=== PATIENT | female | born 1950 | race Caucasian/White ===

== ENCOUNTER 2017-02-03 05:59 | Day surgery (SDC) | payer BC ==
--- NOTE | 2017-01-19 11:37 | HP ---
PREOPERATIVE HISTORY AND PHYSICAL: DATE OF SURGERY/ADMISSION: 02/03/17 DATE OF OFFICE VISIT/ENCOUNTER: 01/15/17 ATTENDING SURGEON: May Rodriguez MD * (DICTATED BY PAUL GIRALDO) PROCEDURE: Right thumb trigger finger release. CHIEF COMPLAINT: Right thumb triggering. HISTORY OF PRESENT ILLNESS: This is a 66-year-old female who has had triggering in her right thumb for over a year now. She was treated with a cortisone injection approximately a year ago and that helped to a certain extent ; however, the symptoms had returned recently and she feels that it is worse than it was before. The thumb is very stiff and she has trouble fully flexing the thumb. It is also very painful if she tries to move through full range of motion. She would like to proceed with surgical intervention at this time. PAST MEDICAL HISTORY: History of breast cancer treated with chemotherapy and radiation. PAST SURGICAL HISTORY: 1. Lumpectomy. 2. Left De Quervain's release. 3. Right Achilles tendon repair. CURRENT MEDICATIONS: 1. Anastrozole 1 mg daily. 2. Calcium 600 plus vitamin D daily. 3. Multivitamin daily. 4. Tylenol Extra Strength p.r.n. 5. Vitamin D high potency daily. ALLERGIES: 1. CODEINE, causes nausea and vomiting. 2. TETRACYCLINE, causes hives. FAMILY MEDICAL HISTORY: Noncontributory. Her parents are alive and well, aged 97 and 96. SOCIAL HISTORY: Patient is employed with a [employer] business and she also does fund raising consulting. She denies tobacco use or recreational drug use and alcohol use. REVIEW OF SYSTEMS: General: Negative for fevers, chills, or night sweats. No known anesthesia problems. HEENT: Negative for headache, lightheadedness, or syncopal episodes. Integumentary: Negative for abrasions, lesions, or open wounds. Cardiothoracic: Negative for hypertension, chest pain, palpitations, or edema. Pulmonary: Negative for shortness of breath with exertion, chronic cough, COPD. GI: Negative for nausea, vomiting, diarrhea, constipation, or GERD. : Negative for nocturia, urinary frequency, urgency, history of UTIs or kidney problems. Musculoskeletal: Positive for current complaint; otherwise negative. Neurological: Negative for paresthesias, numbness, history of seizures, stroke, or epilepsy. Endocrine: Negative for diabetes or thyroid issues. Hematologic: Negative for easy bruising, anemia, excessive bleeding, or history of DVT. Infectious Disease: Negative for history of MRSA, hepatitis, or HIV. PHYSICAL EXAMINATION GENERAL: Well-developed, well-nourished, 66-year-old female, in no acute distress. VITAL SIGNS: Height 5 feet 5 inches, weight 140 pounds, pulse rate 68, blood pressure 110/66. HEENT: Normocephalic, atraumatic. Pupils are equal, round, and reactive to light. Extraocular movements are intact. Throat is clear. NECK: Supple. No palpable lymph nodes. PULMONARY: Lungs are clear to auscultation bilaterally. No wheezes, rales, or rhonchi. CARDIOVASCULAR: Regular rate and rhythm. S1 and S2. No murmurs, rubs, or gallops. No edema. ABDOMEN: Positive bowel sounds, soft, nontender. NEUROLOGIC: Alert and oriented x3. Cranial nerves II through XII are intact. Sensation is intact to light touch. MUSCULOSKELETAL: On exam of the right hand, the patient at A1 kiara of the right thumb, she has marked stiffness at the right thumb IP joint and decreased ability to fully flex the thumb secondary to pain. IMPRESSION: Right thumb trigger thumb. PLAN: The patient is scheduled to undergo a right thumb trigger finger release with Dr. Rodriguez on 02/03/17. She will return to the office 10 to 14 days postop for followup and suture removal. A prescription for Ultracet was e-scribed to the patient's pharmacy for postoperative pain management. PAUL GIRALDO [id number]/[facility] #: [id number] MTDD
[~2017-02-03 05:59] MED LIST: Buffered Lidocaine 0.9% SYRIN* 5 ML/SYR SYRINGE INTRADERM ONE
[2017-02-03] MEDS ORDERED: Buffered Lidocaine 0.9% SYRIN* 5 ML/SYR SYRINGE ONE (06:06)
[2017-02-03] MEDS ORDERED: Lidocaine 1% INJ* 10 MG/ML 30 ML SDV ONE (07:05)
[2017-02-03] MEDS ORDERED: Midazolam* 1 MG/ML 2 ML VIAL (2 MG) ONE (07:11)
[2017-02-03] MEDS ORDERED: fentaNYL* 50 MCG/ML 2 ML VIAL (100 MCG VIAL) ONE (07:11)
[2017-02-03] MEDS ORDERED: DiMENhydriNATE IV* 50 MG/ML VIAL IV PUSH PRN (07:15)
[2017-02-03] MEDS ORDERED: Ondansetron INJ* 2 MG/ML VIAL IV PRN (07:15)
[2017-02-03] MEDS ORDERED: Acetaminophen TAB* 325 MG PO PRN (07:15)
[2017-02-03] MEDS ORDERED: Lidocaine 2% PF * 5 ML VIAL ONE (07:37)
[2017-02-03] MEDS ORDERED: Propofol* 10 MG/ML 20 ML BTL IV PUSH ONE (07:37)
[2017-02-03] MEDS ORDERED: Ketorolac INJ* 30 MG/ML 1 ML VIAL ONE (07:37)
[2017-02-03 08:39] VITALS: BP 109/89
--- NOTE | 2017-02-03 10:28 | OP ---
DATE OF OPERATION: 02/03/17 - [facility] DATE OF : 54 SURGEON: May Rodriguez MD SUPERVISOR STENO POOL: PAUL Putnam ANESTHESIOLOGIST: Dr. Soto ANESTHESIA: Local MAC. PRE-OP DIAGNOSIS: Right trigger thumb. POST-OP DIAGNOSIS: Right trigger thumb. OPERATIVE PROCEDURE: Right trigger thumb release. ESTIMATED BLOOD LOSS: Zero. TOURNIQUET TIME: About 5 minutes. INDICATIONS FOR PROCEDURE: Arpita is a 66-year-old female with triggering of her right thumb. She presents for trigger thumb release. DESCRIPTION OF PROCEDURE: The patient was brought to the operating room, was given a sedation anesthetic and a local infiltration of 10 cc of 1% plain lidocaine. Skin of her right hand and forearm was prepped and draped in the usual sterile fashion. The hand and forearm were exsanguinated and the tourniquet elevated to 250 mmHg. A transverse incision was made centered at the A1 kiara of the right thumb. We dissected through the subcutaneous tissue. After the digital neurovascular bundles were retracted by the neurosurgical nurse, Barbara Brooks, the A1 kiara was incised longitudinally completely releasing the flexor tendon, which had a small area of abrasion. The wound was irrigated and the skin edges were reapproximated with 4-0 nylon suture. The wound was dressed with Xeroform, 4x4, Webril, and an Srikanth wrap. The patient tolerated the procedure well and was brought to the recovery room in good condition. [id number]/[facility] #: [id number] MTDD
== END 2017-02-03 09:21 | disposition home or self-care (01) ==
LOC: OR 05:59
PROVIDERS: ATTEND Orthopaedic Surgery
DX: M65.311 Trigger thumb, right thumb (principal); Z85.3 Personal history of malignant neoplasm of breast; F41.8 Other specified anxiety disorders
CPT/HCPCS: J1885; J2001; J2250; J2704; J3010

== ENCOUNTER 2017-07-25 09:00 | Emergency (ER) | payer BC ==
[2017-07-25 09:08] VITALS: BP 143/89
--- NOTE | 2017-07-25 11:33 | UC ---
Kamran Deleon Angela, scribed for Olya Campbell DO on 07/25/17 at 0942 . Skin Complaint HPI - HPI Summary HPI Summary: This pt is a 66 y/o female presenting to [facility] c/o sudden onset of lump on left wrist since 18:30 last night. Pt reports she arrived home from the gym last night and suddenly felt a lump on her left arm. She states it has been sore since last night. Denies trauma or injury to the arm. Pt works out 4 times a week at the [employer]. Pt reports this lump has felt stiff as well. Denies fever, chills, diaphoresis, nausea, vomiting, abd pain, chest pain, SOB. She states she feels great, and works out and runs frequently. She reports she is in the middle of chemo (on CMF) for breast CA which she has at [facility], her 4th week is this Thursday. The last infusion was 2.5 weeks ago on left arm. She states this current lump is not on the site of infusion. Pt has had a ganglion cyst 2 years ago on left wrist (not on current location of lump) and notes it was also sore. Allergic to tetracyclines. - History of Current Complaint Chief Complaint: UCSkin Time Seen by Provider: 07/25/17 09:27 Stated Complaint: WRIST COMPLAINT Hx Obtained From: Patient Onset/Duration: Lasting Hours, Still Present Skin Exposure Onset/Duration: Hours Ago Timing: Constant Current Severity: Moderate Pain Intensity: 3 Pain Scale Used: 0-10 Numeric Location: Other - left wrist Character: Swelling, Pain, Raised Aggravating Factor(s): Nothing Alleviating Factor(s): Nothing Associated Signs & Symptoms: Negative: Nausea, Vomiting, Diaphoresis, Difficulty Breathing, Fever, Chills, Chest Pain, Abdominal Pain Related History: Other: - is currently on chemo for breast CA - Allergy/Home Medications Allergies/Adverse Reactions: Allergies Allergy/AdvReac Type Severity Reaction Status Date / Time codeine Allergy Vomiting Verified 07/25/17 09:09 Tetracyclines Allergy Rash Verified 07/25/17 09:09 Review of Systems Constitutional: Negative Skin: Other - lump on left wrist Eyes: Negative ENT: Negative Respiratory: Negative Cardiovascular: Negative Gastrointestinal: Negative Genitourinary: Negative Motor: Negative Neurovascular: Negative Musculoskeletal: Other: - left wrist soreness Neurological: Negative Psychological: Negative All Other Systems Reviewed And Are Negative: Yes PMH/Surg Hx/FS Hx/Imm Hx - Additional Past Medical History Additional PMH: PMHx: ganglion cyst Other Endocrine History: DENIES: diabetes Other Cardiovascular History: DENIES: HTN Cancer History: Breast Cancer - Surgical History Surgical History: Yes Surgery Procedure, Year, and Place: LUMPECTOMY RIGHT BREAST, WITH SENTINEL BIOPSY 11/10/2014, [facility]. ACHILLES TENDON REPAIR AGE 18,. LT WRIST GANGLION CYST EXC 12/2015 - Family History Known Family History: Negative: Cardiac Disease, Hypertension, Diabetes - Social History Occupation: Retired Alcohol Use: None Substance Use Type: None Smoking Status (MU): Never Smoked Tobacco Have You Smoked in the Last Year: No Physical Exam Triage Information Reviewed: Yes Appearance: Well-Appearing, No Pain Distress, Well-Nourished Vital Signs: Initial Vital Signs Temp 97.8 F 07/25/17 09:05 Pulse 96 07/25/17 09:05 Resp 18 07/25/17 09:05 BP 143/89 07/25/17 09:05 Pulse Ox 100 07/25/17 09:05 Vital Signs Reviewed: Yes Eyes: Positive: Conjunctiva Clear. Negative: Discharge ENT: Positive: Hearing grossly normal. Negative: Muffled voice, Hoarse voice Neck exam: Normal Neck: Positive: Supple Respiratory: Positive: Lungs clear, Normal breath sounds, No respiratory distress, No accessory muscle use Cardiovascular: Positive: RRR, No Murmur Musculoskeletal Exam: Normal Neurological: Positive: Alert, Muscle Tone Normal Psychological Exam: Normal Psychological: Positive: Age Appropriate Behavior Skin Exam: Other - LUE: She has a 7 cm erythematous patch on the posterior surface of the left forearm with a thickened area about of a centimeter in size. Area is hot, red, swollen, and tender. Negative for fluctuance. Course/Dx - Course Course Of Treatment: Patient will be discharged with prescription for Keflex and follow up from her PCP in 2 days. She is advised to return to Urgent Care if she is not able to be seen in 2 days. The patient is agreeable with this plan. Medications reviewed. Allergies reviewed. - Diagnoses Provider Diagnoses: abscess Discharge - Discharge Plan Condition: Stable Disposition: HOME Prescriptions: Cephalexin CAP* [Keflex CAP*] 500 mg PO BID #20 cap Patient Education Materials: Abscess (ED), Warm Compress or Soak (ED) Referrals: Amy Ryan MD [Primary Care Provider] - 2 Days (Follow up in 2 days for re- evaluation. This follow up visit is important, we want to know that you are improving. If you can not get in with your PCP, return here for re-evaluation. ) Additional Instructions: CEPHALEXIN: The antibiotic you've been prescribed is a member of the cephalosporin class. This type of antibiotic covers a wide variety of infections, including those of the skin, lungs, and urinary tract. It's useful for staph infections. This antibiotic is slightly similar to the penicillin family. In rare cases , a person who is allergic to penicillin will also be allergic to this medication. If you have had a severe allergic reaction to penicillin, and have not taken this antibiotic since that time, notify your doctor. Antibiotics which cover many germs ("broad spectrum" antibiotics) are more likely to cause diarrhea or "yeast" infections. Women prone to vaginal yeast problems may suffer an attack after taking this antibiotic. In infants, oral thrush (white spots "stuck" on the cheek) or yeast diaper rash may result. See your doctor if these problems occur. Call at once if you develop itching, hives , shortness of breath, or lightheadedness. ANYTIME YOU TAKE AN ANTIBIOTIC, IT IS IMPORTANT TO REPLENISH THE BODY'S SUPPLY OF "GOOD BACTERIA." YOU CAN GET GOOD BACTERIA FROM HIGH QUALITY CULTURED FOODS SUCH LOCAL YOGURT, SOUR KRAUT, NENO VIDAL, NATURALLY FERMENTED PICKLES AND PROBIOTIC DRINKS. YOU CAN ALSO GET GOOD BACTERIA FROM A PROBIOTIC SUPPLEMENT. Follow up in 2 days for re-evaluation. This follow up visit is important, we want to know that you are improving. If you can not get in with your PCP, return here for re-evaluation. Do warm compresses. Please follow up with Dr. Ryan in 2 days, on Thursday07/27/17. The documentation as recorded by the Kamran king Angela accurately reflects the service I personally performed and the decisions made by me, Olya Campbell DO.
== END 2017-07-25 10:40 | disposition home or self-care (01) ==
LOC: UCEAST 09:00
DX: L02.414 Cutaneous abscess of left upper limb (principal); C50.919 Malignant neoplasm of unspecified site of unspecified female breast
CPT/HCPCS: 99212; G0463

== ENCOUNTER 2018-07-10 15:09 | Emergency (ER) | payer MEDICARE, BC ==
--- NOTE | 2018-07-10 15:17 | UC ---
Respiratory Complaint HPI - HPI Summary HPI Summary: 67 y/o female w/ PMHX of breast cancer s/p RT breast mastectomy presents to the urgent care c/o nasal congestion with yellowish drainage for the past week. Pt reports symptoms started over the last weekend with the common cold or flu. However she got the influenza vaccines this year. By Thursday she developed chest congestion w/ a productive cough, body aches, nausea and decrease appetite and low subjective fever at home. cough has worsen and now is producing a green sputum. She has taken Mucinex DM PO w/o any improvement. She feels her BP increases with the cough medication. Pt denies SOB, chest pain, abdominal pain, wheezing, V/D. - History of Current Complaint Stated Complaint: COUGH Time Seen by Provider: 07/10/18 15:16 Hx Obtained From: Patient ?: No - menopausal Onset/Duration: Gradual Onset, Lasting Weeks - 1 week, Still Present, Worse Since - 1 day Timing: Intermittent Episodes Severity Initially: Mild Severity Currently: Moderate Pain Intensity: 4 Pain Scale Used: 0-10 Numeric Character: Cough: Productive, Sputum Description: - green Aggravating Factors: Recumbent Position Alleviating Factors: OTC Meds Associated Signs And Symptoms: Positive: Fever, Chills, URI, Nasal Congestion, Sinus Discomfort. Negative: Dyspnea, Wheezing - Risk Factors Pulmonary Embolism Risk Factors: Negative Cardiac Risk Factors: Negative Pseudomonas Risk Factors: Negative Tuberculosis Risk Factors: Negative - Allergies/Home Medications Allergies/Adverse Reactions: Allergies Allergy/AdvReac Type Severity Reaction Status Date / Time codeine Allergy Vomiting Verified 07/10/18 15:22 Tetracyclines Allergy Rash Verified 07/10/18 15:22 Home Medications: Home Medications Tamoxifen TAB* [Nolvadex 10 MG*] 07/10/18 [History] guaiFENesin [Mucinex] 07/10/18 [History] PMH/Surg Hx/FS Hx/Imm Hx Previously Healthy: Yes Cancer History: Breast Cancer - rt breast s/p mastectomy - Surgical History Surgical History: Yes Surgery Procedure, Year, and Place: LUMPECTOMY RIGHT BREAST, WITH SENTINEL BIOPSY 11/10/2014, [facility]. ACHILLES TENDON REPAIR AGE 18,. LT WRIST GANGLION CYST EXC 12/2015 - Family History Known Family History: Positive: None - Pt denies FMHX Negative: Cardiac Disease, Hypertension, Diabetes - Social History Occupation: Retired Lives: With Family Alcohol Use: None Substance Use Type: None Smoking Status (MU): Never Smoked Tobacco Have You Smoked in the Last Year: No Review of Systems All Other Systems Reviewed And Are Negative: Yes Constitutional: Positive: Fever, Chills, Other - body aches Eyes: Positive: Negative ENT: Positive: Nasal Discharge - yellowish, Sinus Congestion Respiratory: Positive: Cough - productive phlegm w/ green phlegm Cardiovascular: Positive: Negative Gastrointestinal: Positive: Negative Genitourinary: Positive: Negative Motor: Positive: Negative Neurovascular: Positive: Negative Musculoskeletal: Positive: Negative Neurological: Positive: Negative Psychological: Positive: Negative Is Patient Immunocompromised?: No Physical Exam - Summary Physical Exam Summary: Vital Signs Reviewed: Yes General: well developed, well nourished female sitting in the examining table w/ o any apparent distress Eyes: Positive: Conjunctiva Clear - PERRLA, EOMI, fundi grossly normal ENT: Positive: Normal ENT inspection, Hearing grossly normal, Pharynx normal, Nasal congestion - edematous and erythematous nasal mucosa, Nasal drainage - yellowish drainage, TMs normal. Negative: Tonsillar swelling, Tonsillar exudate Neck: Positive: Supple, Nontender, No Lymphadenopathy Respiratory: no orthopnea or dyspnea. Able to speak in full sentences, no retractions or accessory muscle use, no tripod position, stridor, or head bobbing. Positive breath sounds bilaterally. diffuse scattered rhonchi on b/L lungs,RT>LF, no wheezing, no crackles or rales. Cardiovascular: Positive: RRR, No Murmur, Pulses Normal, Brisk Capillary Refill Abdomen Description: Positive: Nontender, No Organomegaly, Soft. Negative: CVA Tenderness (R), CVA Tenderness (L) Bowel Sounds: Positive: Present Musculoskeletal Exam: Normal Musculoskeletal: Positive: Strength Intact, ROM Intact, No Edema Neurological Exam: Normal Psychological Exam: Normal Skin Exam: Normal Triage Information Reviewed: Yes Respiratory Course/Dx - Course Course Of Treatment: 67 y/o female w/ PMHX of breast cancer s/p RT breast mastectomy presents to the urgent care c/o nasal congestion with yellowish drainage for the past week. Pt reports symptoms started over the last weekend with the common cold or flu. However she got the influenza vaccines this year. By Thursday she developed chest congestion w/ a productive cough, body aches, nausea and decrease appetite and low subjective fever at home. cough has worsen and now is producing a green sputum. She has taken Mucinex DM PO w/o any improvement. She feels her BP increases with the cough medication. Pt denies SOB, chest pain, abdominal pain, wheezing, V/D. Hx obtained. Pt with B/L lungs with scattered rhonchi Rt >LF on examination. Rapid Inlfuenza A&B; negative.Chest X-ray ordered to r/o pneumonia. Impression: Nodular RT upper lobe infiltrate , radiologist recommends repeat chest X-ray for complete resolution, otherwise a CT should be done to r/o neoplastic process. Pt educated on her results and given a CD copy of Chest X-ray to take it to her Oncologist in [facility]. Rx Rx Levofloxacin PO and Tessalon tabs PO. Pt advised if worsening symptoms despite antibiotics to go the ER immediately, otherwise f/u wit PCP in 2 days to make sure symptoms are improving. All questions were answered at patient satisfaction. There were no further complaints or concerns. Pt understood and agreed w/ plan of care. Pt left the clinic hemodynamically stable, A&OX3 - Differential Dx/Diagnosis Differential Diagnosis/HQI/PQRI: Asthma, Bronchitis, Influenza, Lower Resp Infection, Other - pneumonia Provider Diagnosis: Community acquired pneumonia, Cough Discharge - Sign-Out/Discharge Documenting (check all that apply): Patient Departure - D/C home All imaging exams completed and their final reports reviewed: No Studies - Discharge Plan Condition: Stable Disposition: HOME Prescriptions: Benzonatate CAP* [Tessalon 100 MG CAP*] 100 mg PO TID PRN #21 cap PRN Reason: Cough Levofloxacin TAB* [Levaquin TAB*] 750 mg PO DAILY #7 tab Patient Education Materials: Community Acquired Pneumonia (ED) Referrals: Amy Ryan MD [Primary Care Provider] - 2 Days Additional Instructions: 1-Please take full course of antibiotic to avoid resistance. 2-Take Tessalon tabs PO as directed to alleviate cough. Increase fluid intake, rest and eat well. 3- If symptoms do not improve or worsen or your develop SOB with fever and severe cough please go immediately to the ER further evaluation and treatment. 4-Please I strongly recommend to f/u with your PCP in 3 days to check your symptoms are improving. Also a repeat Chest X-ray for complete resolution of the nodular infiltrates observed in the Chest -ray in about 4 weeks. If not complete resolution a CT of chest should be done or f/u with your Oncologist in [facility] - Billing Disposition and Condition Condition: STABLE Disposition: Home
[2018-07-10 15:23] VITALS: BP 98/65
[2018-07-10 16:06] LABS: Influenza A Molecular NEGATIVE (Negative); Influenza B Molecular NEGATIVE (Negative)
== END 2018-07-10 16:59 | disposition home or self-care (01) ==
LOC: UCEAST 15:09
DX: J18.9 Pneumonia, unspecified organism (principal); R05 Cough; Z88.5 Allergy status to narcotic agent; Z88.1 Allergy status to other antibiotic agents
CPT/HCPCS: 71046; 99212; G0463

== ENCOUNTER 2019-01-26 13:00 | Day surgery (SDC) | payer MEDICARE, BC ==
[2019-01-26] MEDS ORDERED: Midazolam* 1 MG/ML 5 ML VIAL (5 MG) ONE (14:18)
[2019-01-26] MEDS ORDERED: fentaNYL* 50 MCG/ML 2 ML VIAL (100 MCG VIAL) ONE (14:26)
[2019-01-26] MEDS ORDERED: Midazolam* 1 MG/ML 2 ML VIAL (2 MG) ONE (14:37)
[2019-01-26 15:26] LABS: Body Fluid Source Pleural Fluid
[2019-01-26] MEDS ORDERED: fentaNYL* 50 MCG/ML 2 ML VIAL (100 MCG VIAL) IV PRN (15:43)
[2019-01-26] MEDS ORDERED: Ondansetron INJ* 2 MG/ML VIAL IV PRN (15:43)
[2019-01-26] MEDS ORDERED: Acetaminophen TAB* 325 MG PO PRN (15:43)
[2019-01-26] MEDS ORDERED: Naloxone* 0.4 MG/ML 1 ML VIAL IV PRN (15:43)
[2019-01-26 16:18] VITALS: BP 102/72
[2019-01-26 17:05] LABS: Body Fluid Mono 54 %
--- NOTE | 2019-01-26 17:40 | PRO ---
THORACENTESIS REPORT: DATE OF PROCEDURE: 01/26/19 PREPROCEDURAL DIAGNOSIS: Large right pleural effusion. POSTPROCEDURAL DIAGNOSIS: Large right pleural effusion. ANESTHESIA: The patient requested conscious sedation, local anesthesia with 1% lidocaine, 6 cc was administered. ANESTHESIOLOGIST: Dr. Messina. DESCRIPTION OF PROCEDURE: Informed consent was obtained from the patient prior to the procedure after all the risks and benefits were thoroughly explained. The patient with anxiety and has required conscious sedation during the procedure. The patient was sitting up, leaning forward after the anesthesia was administered. CareFusion 8-Fijian thoracentesis catheter was utilized for the procedure. All aseptic precautions and barrier techniques were followed. The area was sterilized with chlorhexidine. Sterile drape was subsequently placed. 1% lidocaine 6 mL was inserted transdermally subcutaneously down into the pleural space taking precautions. A #11 scalpel blade was used to make stab incision. CareFusion 8-Fijian thoracentesis catheter was then placed under manual suction taking precautions. Catheter was left in place and needle was removed. 1800 mL of dark yellow fluid was removed under manual suction. The patient tolerated the procedure well. Postprocedure, no complications occurred. The patient was feeling well and denied any complaints. Fluid was sent into the lab for further testing. [id number]/[facility] #: [id number] [facility]
[2019-01-28 10:43] LABS: Lactate Dehydrogenase, BF 345 U/L
== END 2019-01-26 16:22 | disposition home or self-care (01) ==
LOC: OR 13:00
PROVIDERS: ATTEND Internal Medicine
DX: J90 Pleural effusion, not elsewhere classified (principal); C50.911 Malignant neoplasm of unspecified site of right female breast; C79.51 Secondary malignant neoplasm of bone; R06.02 Shortness of breath
CPT/HCPCS: 32554; 36415; 76604; 82945; 83615; 83986; 84157; 87070; 87205; 88112; 88305; 89051; J2250; J3010

== ENCOUNTER 2019-02-05 09:28 | Emergency (ER) | payer MEDICARE, BC ==
[2019-02-05] MEDS ORDERED: NS 0.9% 1000 ML** 1,000 ML IV ONE (09:38)
--- NOTE | 2019-02-05 09:39 | ED ---
Shortness of Breath - HPI Summary HPI Summary: This patient is a 68 year old F presenting to ED with a chief complaint of SOB since 5 days ago worsening yesterday. Patient does not have a history of asthma or COPD, but has metastatic breast cancer. She had a thoracentesis a week ago which alleviated her SOB at the time. However, she re-developed SOB and states she is now unable to walk very many steps without losing her breath. Patient reports hearing wheezing and crackling, similar to when she had PNA, but states she does not feel sick. She states she everything she has coughed up has been clear. Patient does not a history of CHF, DVT, PE. The patient rates the pain 0/ 10 in severity. Symptoms aggravated by physical exertion. Symptoms alleviated by nothing. Patient reports cough. Patient denies fevers, chills. - History of Current Complaint Chief Complaint: EDShortnessOfBreath Hx Obtained From: Patient Onset/Duration: Gradual Onset, Lasting Days - Since 5 days ago, Worse Since - Yesterday Current Severity: Mild Dyspnea At: Rest Aggravating Factors: Other - Physical exertion Alleviating Factors: Nothing Associated Signs & Symptoms: Negative - Fever, chills, Cough (Nonproductive) - Allergy/Home Medications Allergies/Adverse Reactions: Allergies Allergy/AdvReac Type Severity Reaction Status Date / Time codeine Allergy Vomiting Verified 02/05/19 09:38 Tetracyclines Allergy Rash Verified 02/05/19 09:38 Home Medications: Home Medications Palbociclib [Ibrance] 125 mg PO DAILY 02/05/19 [History Confirmed 02/05/19] PMH/Surg Hx/FS Hx/Imm Hx Previously Healthy: No Endocrine/Hematology History: Denies: Hx Diabetes Cardiovascular History: Denies: Hx Hypertension, Hx Pacemaker/ICD, Other Cardiovascular Problems/ Disorders GI History: Denies: Other GI Disorders Musculoskeletal History: Reports: Hx Arthritis - RIGHT HIP, Hx Tendonitis - STATES BECAUSE OF THE ANASTRAZOLE Denies: Other Musculoskeletal History Sensory History: Reports: Hx Contacts or Glasses - INSTRUCTS GIVEN Denies: Hx Hearing Aid Opthamlomology History: Reports: Hx Contacts or Glasses - INSTRUCTS GIVEN Neurological History: Reports: Other Neuro Impairments/Disorders - 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 ACHILLES TENDON REPAIR AGE 18,. LT WRIST GANGLION CYST EXC 12/2015 Hx Anesthesia Reactions: No Infectious Disease History: No Infectious Disease History: Denies: Traveled Outside the [place] in Last 30 Days - Family History Known Family History: Negative: Cardiac Disease, Hypertension, Diabetes - Social History Alcohol Use: None Hx Substance Use: No Substance Use Type: Reports: None Hx Tobacco Use: No Smoking Status (MU): Never Smoked Tobacco Have You Smoked in the Last Year: No Review of Systems Negative: Fever, Chills Positive: Shortness Of Breath, Cough All Other Systems Reviewed And Are Negative: Yes Physical Exam - Summary Physical Exam Summary: GENERAL: Patient is a well-developed and nourished F who is lying comfortable in the stretcher. Patient is not in any acute respiratory distress. HEAD AND FACE: Normocephalic EYES: PERRLA, EOMI x 2. EARS: Hearing grossly intact. MOUTH: Oropharynx within normal limits. NECK: Supple, trachea is midline, no adenopathy, no JVD, no carotid bruit. CHEST: Symmetric, no tenderness at palpation LUNGS: Clear to auscultation bilaterally. No wheezing or crackles. Patient is actively coughing. CVS: Regular rate and rhythm, S1 and S2 present, no murmurs or gallops appreciated. ABDOMEN: Soft, non-tender. Bowel sounds are normal. No abnormal abdominal pulsations. EXTREMITIES: Full ROM in all major joints, no edema, no cyanosis or clubbing. NEURO: Alert and oriented x 3. No acute neurological deficits. Speech is normal and follows commands. SKIN: Dry and warm Triage Information Reviewed: Yes Vital Signs On Initial Exam: Initial Vitals Temp Pulse Resp BP Pulse Ox 97.1 F 128 30 158/104 97 02/05/19 09:30 02/05/19 09:30 02/05/19 09:30 02/05/19 09:30 02/05/19 09:30 Vital Signs Reviewed: Yes Diagnostics - Vital Signs Vital Signs Temp Pulse Resp BP Pulse Ox 02/05/19 09:30 97.1 F 128 30 158/104 97 - Laboratory Result Diagrams: 02/05/19 09:49 02/05/19 09:49 Lab Statement: Any lab studies that have been ordered have been reviewed, and results considered in the medical decision making process. - Radiology CXR Radiology Interpretation Completed By: Radiologist Summary of Radiographic Findings: Large dependent RIGHT pleural effusion with proportional atelectasis similar in magnitude to the January 20, [address] High has reviewed this radiology report. CXR 2 Radiology Interpretation Completed By: Radiologist Summary of Radiographic Findings: #. Moderate RIGHT dependent pleural effusion with proportional atelectasis significantly reduced compared with the earlier exam of the same date. Negative for pneumothorax. #. The heart, pulmonary vasculature, and mediastinal contours are unremarkable. Dr. High has reviewed this radiology report. - EKG 0940 Cardiac Rate: NL - 109 BPM EKG Rhythm: Sinus Rhythm Summary of EKG Findings: Sinus tachycardia at 109 BPM, normal interval. Re-Evaluation - Re-Evaluation First Eval Re-Evaluation Time: 10:11 Comment: Patient reports her thoracentesis was done by Dr. Higgins as an outpatient. Second Eval Re-Evaluation Time: 10:47 Comment: Discussed XR results and plan for Dr. Montano to perform the thoracentesis with patient. Patient agrees but is requesting sedation with Versed for the procedure. Patient reports that the last time she had a thoracentesis she did not go home with the tube in. Third Eval Re-Evaluation Time: 12:45 Comment: Patient had thoracentesis procedure performed by Dr. Montano. He leonarda off 1.8L of fluid. Patient reports her lung feels achy, which is similar to the last time she had a thoracentesis procedure. Fourth Eval Re-Evaluation Time: 14:09 Comment: Discussed post-thoracentesis XR results. After the thoracentesis the patient is much improved. She is able to walk to the bathroom. She reports she is hungry and getting woozy from the hunger. She still has a little bit of coughing, which is new, and is still mildly tachycardic. However, she is down from 120 BPM to 105 BPM. Patient states that recently this has been her resting heart rate. Patient offered admission for observation, but she states she would prefer to go home. Her next appointment with Dr. Grijalva, her oncologist, is not for a few weeks, but she states she will schedule a sooner appointment. I trended the patient's heart rate in the system and noted that she has been slightly tachycardic since July. Because of the patient's cough, I will treat with antibiotics and have the patient follow-up with oncology. Patient will be discharged home with dx of SOB and pleural effusion. Patient understands and agrees with this plan. Course/Dx - Course Course Of Treatment: This patient is a 68 year old F presenting to ED with a chief complaint of SOB since 5 days ago worsening yesterday. In the ED course, patient received fluids. EKG at 0940 revealed sinus tachycardia at 109 BPM, normal interval. CXR revealed: Large dependent RIGHT pleural effusion with proportional atelectasis similar in magnitude to the January 20, 2019 CT. Blood work obtained without abnormality except for RBC 3.42 Hgb 10.3, Hct 31, RDW 18, MPV 6.9, absolute lymphocytes 0.5, calcium 8.2, total protein 6.1. UA obtained without abnormality except 1.005 specific gravity. To perform the thoracentesis , patient received 2mg Versed. At 1046 discussed patient case with Dr. Enrique Montano, surgeon, who stated he will come to do the thoracentesis. At 1242, discussed with Dr. Montano who performed the thoracentesis. Patient tolerated the procedure without complication. He leonarda off 1.8L of fluid. Following the thoracentesis, patient received Ofirnev for pain. Post-thoracentesis CXR revealed #. Moderate RIGHT dependent pleural effusion with proportional atelectasis significantly reduced compared with the earlier exam of the same date. Negative for pneumothorax. #. The heart, pulmonary vasculature, and mediastinal contours are unremarkable. Upon re-eval after the thoracentesis the patient is much improved. She still has a little bit of coughing and is still mildly tachycardic. However, she is down from 120 BPM to 105 BPM. Patient states that recently this has been her resting heart rate. I trended the patient 's heart rate in the system, and she has been slightly tachycardic since July. Patient offered admission for observation, but she states she would prefer to go home. Discussed with oncology regarding short course of antibiotics since the patient is coughing for underlying PNA. Luis Angel Motta, oncology PA, stated she was fine with patient being discharged for follow-up soon. Therefore, because of the patient's persistent cough, I will treat with Zithromax in the ED. I discussed results with patient, and she reports feeling better. She is hemodynamically stable and safe for discharge. Strict return precautions given and she will otherwise follow up with her PCP and oncology. Patient will be discharged home with dx of SOB and pleural effusion. - Diagnoses Provider Diagnoses: SOB (shortness of breath), Pleural effusion - Physician Notifications Discussed Care of Patient With: Luis Angel Motta Time Discussed With Above Provider: 10:37 Instructed by Provider To: Other - Discussed patient case with Luis Angel Motta oncology PA, who stated she will come down to the see the patient to get general surgery for the thoracentesis. At 1046 discussed patient case with Dr. Enrique Montano, surgeon, who stated he will come to do the thoracentesis. At 1242 , discussed with Dr. Montano who performed the thoracentesis. Patient tolerated the procedure without complication. He leonarda off 1.8L of fluid. At 1417 discussed patient case with with PAUL Alamo oncology, who states the patient can go home with follow-up in two days. Discharge ED - Sign-Out/Discharge Documenting (check all that apply): Patient Departure - Discharge Patient Received Moderate/Deep Sedation with Procedure: No - Discharge Plan Condition: Stable Disposition: HOME Prescriptions: Azithromycin 500 mg PO DAILY #4 tablet Patient Education Materials: Pleural Effusion (ED), Pneumonia (ED), Shortness of Breath (ED), Thoracentesis (DC) Referrals: Amy Ryan MD [Primary Care Provider] - 3 Days Yulia Grijalva MD [Medical Doctor] - 3 Days Additional Instructions: Follow up with your primary care physician in 1-3 days. Follow up with oncology as well. RETURN TO THE EMERGENCY DEPARTMENT FOR CHANGING OR WORSENING SYMPTOMS. - Billing Disposition and Condition Condition: STABLE Disposition: Home - Attestation Statements Document Initiated by Scribe: Yes Documenting Scribe: Tremaine Cannon Provider For Whom Scribe is Documenting (Include Credential): Vivi High MD Scribe Attestation: Tremaine Deleon, scribed for Vivi High MD on 02/05/19 at 1557. Scribe Documentation Reviewed: Yes Provider Attestation: The documentation as recorded by the scribe, Tremaine Cannon accurately reflects the service I personally performed and the decisions made by me, Vivi High MD Status of Scribe Document: Viewed
[2019-02-05 10:20] LABS: ABS Eosinophils 0.2 10^3/ul (0-0.6); ABS Lymphocytes 0.5 10^3/ul (1.0-4.8); ABS Monocytes 0.2 10^3/ul (0-0.8); ABS Neutrophils 2.6 10^3/ul (1.5-7.7); Hematocrit 31 % (35-47); Hemoglobin 10.3 g/dL (12.0-16.0); Lymphocyte % 13.2 %; Mean Corpuscular HGB Conc 34 g/dL (31-36); Mean Corpuscular Hemoglobin 30 pg (27-31); Mean Corpuscular Volume 90 fL (80-97); Mean Platelet Volume 6.9 fL (7.4-10.4); Nucleated Red Blood Cells % 0.3; Platelet Count 249 10^3/uL (150-450); Red Blood Count 3.42 10^6 /uL (3.70-4.87); Red Cell Distribution Width 18 % (10-15); White Blood Count 3.5 10^3/uL (3.5-10.8)
[2019-02-05 10:28] LABS: Activated Partial Thrombo Time 37.4 seconds (26.0-38.0); INR 1.03 (0.82-1.09)
[2019-02-05 10:37] LABS: Albumin 3.7 g/dL (3.2-5.2); Albumin/Globulin Ratio 1.5 (1-3); BUN/Creatinine Ratio 12.7 (8-20); Calcium 8.2 mg/dL (8.6-10.3); EGFR African American 88.1 (>60); EGFR Non-African American 72.8 (>60); Globulin 2.4 g/dL (2-4); Magnesium 2.1 mg/dL (1.9-2.7); Potassium 3.9 mmol/L (3.5-5.0); Total Bilirubin 0.3 mg/dL (0.2-1.0); Total Protein 6.1 g/dL (6.4-8.9)
[2019-02-05 11:49] LABS: Urine Appearance Clear; Urine Bilirubin Negative (Negative); Urine Blood Negative (Negative); Urine Color Colorless; Urine Glucose Negative (Negative); Urine Ketones Negative (Negative); Urine Nitrite Negative (Negative); Urine Protein Negative (Negative); Urine Specific Gravity 1.005 (1.010-1.030); Urine Urobilinogen Negative (Negative)
[2019-02-05] MEDS ORDERED: Midazolam* 1 MG/ML 5 ML VIAL (5 MG) IV SLOW PU ONE (11:50)
--- NOTE | 2019-02-05 12:07 | UC ---
Course/Dx - Provider Notifications Time Discussed With Above Provider: 10:37 Instructed by Provider To: Other - Discussed patient case with Luis Angel Motta, oncology PA, who stated she will come down to the see the patient to get general surgery for the thoracentesis. At 1046 discussed patient case with Dr. Enrique Montano, surgeon, who stated he will come to do the thoracentesis. Discharge ED - Discharge Plan Patient Education Materials: Procedural Sedation (ED) Referrals: Amy Ryan MD [Primary Care Provider] - - Attestation Statements Document Initiated by Monica: Yes
[2019-02-05] MEDS ORDERED: Acetaminophen IV 1GM/100ML * 100 ML IVPB ONE (13:00)
[2019-02-05] MEDS ORDERED: Azithromycin TAB* 250 MG PO ONE (14:20)
[2019-02-05 14:54] VITALS: BP 108/80
--- NOTE | 2019-02-05 15:35 | PRO ---
CC: Yulia Grijalva MD; [facility] * DATE OF PROCEDURE: 02/05/19 - EMERGENCY DEPT SURGEON: Enrique Montano MD DRINK MIXER: None. ANESTHESIA: 1% lidocaine plain used locally. PREPROCEDURE DIAGNOSIS: Recurrent right pleural effusion. POSTPROCEDURE DIAGNOSIS: Recurrent right pleural effusion. PROCEDURE: Right thoracentesis. ESTIMATED BLOOD LOSS: None. DRAINS: None. SPECIMENS: None. COMPLICATIONS: None. FINDINGS: 1850 mL clear straw-colored fluid removed from the right chest. INDICATIONS: This is a 68-year-old female with a recently diagnosed metastatic breast cancer who had a right thoracentesis for pleural effusion 1-1/2 weeks ago. She presented to the emergency room with complaint of shortness of breath and upon evaluation with imaging was noted to have a recurrent right pleural effusion. Emergency room staff contacted me for thoracentesis. I explained the nature of this procedure. The indications, risks, benefits, and alternatives including the option of treatment. We discussed possibility of future placement of a PleurX catheter. The patient was explained that the risks included, but were not limited to bleeding, infection, pain, scars, injury to the underlying lung, and need for additional procedures. The patient had all questions answered. She stated her understanding and agreed to proceed. DESCRIPTION OF PROCEDURE: The patient was positioned sitting upright in the bedside table while in the emergency room department stretcher. The posterior right chest was prepped and draped in the usual sterile fashion and time-out was performed. Local anesthetic was infiltrated into the skin and soft tissue at approximately the eighth intercostal space in line with the mid clavicle. The aspiration confirmed clear serous fluid. The skin was nicked with a 11 blade scalpel. A 5 -Jamaican catheter over needle device was advanced into the pleural cavity and then the needle was withdrawn. The tubing was then connected to evacuated canisters and 1850 mL of fluid was removed. At this point, the patient was reporting chest pain and coughing, and we decided to conclude the procedure. Catheter was removed without incident and dressing was applied. She tolerated this procedure well. Chest x-ray is pending at the time of dictation and will be checked. [id number]/[facility] #: [id number] MTDD
== END 2019-02-05 14:54 | disposition home or self-care (01) ==
LOC: ED 09:28
DX: J90 Pleural effusion, not elsewhere classified (principal); R06.02 Shortness of breath; Z79.899 Other long term (current) drug therapy; Z85.3 Personal history of malignant neoplasm of breast; R05 Cough; F41.9 Anxiety disorder, unspecified; I50.9 Heart failure, unspecified; Z86.718 Personal history of other venous thrombosis and embolism
CPT/HCPCS: 32554; 36415; 71045; 80053; 81003; 83605; 83735; 83880; 84484; 85025; 85610; 85730; 93005; 96365; 96375; 99284; A9270-GY; J2250

== ENCOUNTER → 2019-02-18 07:49 | Day surgery (SDC) | payer MEDICARE, BC ==
--- NOTE | 2019-02-18 09:25 | BRIEFOPN ---
Brief Operative/Procedure Note - Operation Details Pre-Op Diagnosis: Large rt effusion Post-Op Diagnosis: Large rt effusion Procedures: Thoracentesis with U/S guidance on right side Surgeon(s)/Proceduralists: Yuni Higgins Anesthesia: Local with 1% Lidocaine 5cc Estimated Blood Loss: None Findings: Large rt effusion, dark yellow Specimen(s)/Culture(s) Description: Fluid sent for cytology Complications: None
--- NOTE | 2019-02-18 11:17 | PRO ---
THORACENTESIS REPORT: DATE OF PROCEDURE: 02/18/19 PROCEDURE PERFORMED: Ultrasound-guided thoracentesis on the right side. PREPROCEDURAL DIAGNOSIS: Large right pleural effusion. ANESTHESIA: Local anesthesia with 1% lidocaine 6 cc. DESCRIPTION OF PROCEDURE: Informed consent was obtained from the patient prior to the procedure after all the risks and benefits including risk of pneumothorax was explained. Strict aseptic precautions and barrier techniques were utilized. The patient was sitting up and leaning forward during the procedure. Portable ultrasound was utilized at bedside to localize large amounts of right pleural effusion. Site was marked and appropriate images were obtained. The area was disinfected with chlorhexidine. Sterile drape was placed. 1% lidocaine was then instilled subdermally down into the pleural space taking precautions. A #11 scalpel blade was utilized to make stab incision to facilitate passage of 8-Macedonian thoracentesis catheter. CareFusion 8 -Macedonian thoracentesis catheter was then inserted to manual suction taking precautions. Catheter was left in place and needle was removed. 1.8 L of dark yellow fluid was removed under manual suction. The patient tolerated the procedure well. The patient had mild cough towards the end of the procedure. The catheter was then removed and sterile Band-Aid was applied. Fluid was sent to the lab for cytological examination. The patient was discharged with appropriate instructions. [id number]/[facility] #: [id number] MTDD
== END | disposition home or self-care (01) ==
LOC: OR 07:49
PROVIDERS: ATTEND Internal Medicine
DX: J90 Pleural effusion, not elsewhere classified (principal); C50.919 Malignant neoplasm of unspecified site of unspecified female breast; Z95.2 Presence of prosthetic heart valve
CPT/HCPCS: 32554; 76604; 88112; 88305

== ENCOUNTER → 2019-03-04 11:12 | Day surgery (SDC) | payer MEDICARE, BC ==
--- NOTE | 2019-03-04 12:48 | BRIEFOPN ---
Brief Operative/Procedure Note - Operation Details Pre-Op Diagnosis: Pleural effusion Post-Op Diagnosis: Pleural effusion Procedures: Toracentesis with image guidance on right side Surgeon(s)/Proceduralists: Yuni Higgins Anesthesia: Local with 5cc of 1% lidocaine Estimated Blood Loss: None Findings: Large right pleural effusion Specimen(s)/Culture(s) Description: Fluid for cytology Complications: None
--- NOTE | 2019-03-04 23:02 | PRO ---
THORACENTESIS REPORT: DATE OF PROCEDURE: 03/04/19 - SDS PRE-PROCEDURAL DIAGNOSIS: Large right pleural effusion. POST-PROCEDURAL DIAGNOSIS: Large right pleural effusion. ANESTHESIA: Local anesthesia with 1% lidocaine. DESCRIPTION OF PROCEDURE: Informed consent was obtained from the patient prior to the procedure after all the risks and benefits were thoroughly explained. The patient is with metastatic breast CA with recurrent pleural effusion. A CareFusion #8 Uzbek thoracentesis catheter was utilized for the procedure. The patient was sitting up and leaning forward during the procedure. Strict aseptic precautions and barrier techniques were utilized. A portable ultrasound was utilized at bedside to localize large amounts of free flowing right pleural effusion. The site was marked and appropriate pictures were taken. The area was disinfected with chlorhexidine. A sterile drape was then placed. Lidocaine 1% was then instilled subcutaneously intradermally down into the pleural space taking precautions. A #11 scalpel blade was utilized to make a stab incision. A CareFusion #8 Uzbek thoracentesis catheter was subsequently inserted under manual suction, taking precautions. The catheter was left in place and the needle was removed; 1700 mL of dark yellow fluid was removed under manual suction. A sterile Band-Aid was applied on the area. The patient tolerated the procedure well. The patient had a cough that resolved subsequently. The patient was then discharged with appropriate instructions. Fluid was sent in for microbiological and cytological examination. [id number]/[facility] #: [id number] MTDD
== END | disposition home or self-care (01) ==
LOC: OR 11:12
PROVIDERS: ATTEND Internal Medicine
DX: J90 Pleural effusion, not elsewhere classified (principal); R06.02 Shortness of breath; C50.919 Malignant neoplasm of unspecified site of unspecified female breast; Z95.2 Presence of prosthetic heart valve
CPT/HCPCS: 32554; 76604; 88112; 88305; 88341; 88342; 88360

== ENCOUNTER → 2019-03-18 11:18 | Day surgery (SDC) | payer MEDICARE, BC ==
--- NOTE | 2019-03-18 13:42 | BRIEFOPN ---
Brief Operative/Procedure Note - Operation Details Pre-Op Diagnosis: pleural effusion-rt Post-Op Diagnosis: pleural effusion- large rt Procedures: Thoracentesis with image guidance Surgeon(s)/Proceduralists: myranda Higgins Anesthesia: Lidocaine 1%-5cc Estimated Blood Loss: Negligable Findings: Sero sanguinous large rt effusion Specimen(s)/Culture(s) Description: No specimens Complications: None
--- NOTE | 2019-03-18 19:51 | PRO ---
THORACENTESIS REPORT: DATE OF PROCEDURE: 03/18/19 PROCEDURE PERFORMED: Ultrasound-guided thoracentesis on the right side. PREPROCEDURAL DIAGNOSIS: Right pleural effusion. ANESTHESIA: Local anesthesia with 1% lidocaine 6 cc. DESCRIPTION OF PROCEDURE: Informed consent was obtained from the patient prior to the procedure after all the risks and benefits were thoroughly explained. Appropriate time-out was performed and agreed on by the attending staff. A portable ultrasound was utilized at bedside to localize large amounts of right pleural effusion. Area was disinfected with chlorhexidine. Strict aseptic precautions and barrier techniques utilized. After ultrasound localization, the area was disinfected with chlorhexidine. Area was covered with sterile drape. Local anesthesia was achieved with 1% lidocaine intradermally down into the pleural space taking precautions. #11 scalpel blade was utilized to make stab incision to facilitate passage of thoracentesis catheter. An 8-Cypriot thoracentesis catheter was then inserted under manual suction taking precautions. Catheter was left in place and needle was removed. 1.6 L of blood stained fluid was removed under manual suction. Catheter was then removed and sterile Band-Aid was applied. The patient tolerated the procedure well. The patient had no discomfort postprocedure. Given large pleural effusion and utilization of ultrasound, no chest x-ray was ordered as there was no concern noted for pneumothorax. [id number]/[facility] #: [id number] [facility]
== END | disposition home or self-care (01) ==
LOC: OR 11:18
PROVIDERS: ATTEND Internal Medicine
DX: J90 Pleural effusion, not elsewhere classified (principal); C50.919 Malignant neoplasm of unspecified site of unspecified female breast; C77.1 Secondary and unspecified malignant neoplasm of intrathoracic lymph nodes; C79.51 Secondary malignant neoplasm of bone; G89.29 Other chronic pain
CPT/HCPCS: 32554; 76604

== ENCOUNTER → 2019-04-06 10:55 | Day surgery (SDC) | payer MEDICARE, BC ==
--- NOTE | 2019-04-06 12:47 | BRIEFOPN ---
Brief Operative/Procedure Note - Operation Details Pre-Op Diagnosis: Large rt effusion Post-Op Diagnosis: Large rt effusion Procedures: U/S guided thoracentesis on right side Surgeon(s)/Proceduralists: myranda Higgins Anesthesia: Local with 1% lidocaine 6 cc Estimated Blood Loss: None Findings: Sero sanguinous rt effusion Specimen(s)/Culture(s) Description: None Complications: None
--- NOTE | 2019-04-06 13:57 | PRO ---
THORACENTESIS REPORT: DATE OF PROCEDURE: 04/06/19 PROCEDURE PERFORMED: Ultrasound-guided thoracentesis on the right side. PREPROCEDURAL DIAGNOSIS: Large right pleural effusion. ANESTHESIA: Local anesthesia with 1% lidocaine. DESCRIPTION OF PROCEDURE: The patient with metastatic breast cancer with recurrent pleural effusion. Thoracentesis performed for symptomatic benefit. Informed consent was obtained from the patient prior to the procedure after all the risks and benefits were thoroughly explained. Appropriate time-out was performed and agreed on by attending staff prior to the procedure. Strict aseptic precautions and barrier techniques utilized. A CareFusion 8-Afghan thoracentesis catheter was utilized for the procedure. The patient was sitting up and leaning forward during the procedure. Ultrasound was utilized at bedside to localize large amounts of right pleural effusion. Site was subsequently marked. Area was disinfected with chlorhexidine. A 1% lidocaine was then instilled down into the pleural space taking precautions. A #11 scalpel blade was used to make a stab incision. Catheter was left in place and needle was removed. 1.8 L of serosanguineous fluid was subsequently removed under manual suction. The patient tolerated the procedure well. The patient had cough that resolved soon after the procedure. A sterile Band-Aid was applied in the area. The patient was subsequently discharged home with appropriate instructions. [id number]/[facility] #: [id number] [facility]ITALLeon
== END | disposition home or self-care (01) ==
LOC: OR 10:55
PROVIDERS: ATTEND Internal Medicine
DX: J90 Pleural effusion, not elsewhere classified (principal); C50.919 Malignant neoplasm of unspecified site of unspecified female breast; C77.3 Secondary and unspecified malignant neoplasm of axilla and upper limb lymph nodes; C79.51 Secondary malignant neoplasm of bone
CPT/HCPCS: 32554; 76604

== ENCOUNTER → 2019-04-22 11:27 | Day surgery (SDC) | payer MEDICARE, BC ==
--- NOTE | 2019-04-22 14:58 | BRIEFOPN ---
Brief Operative/Procedure Note - Operation Details Pre-Op Diagnosis: Right pleural effusion Post-Op Diagnosis: Large right pleural effusion Procedures: U/S guided thoracentesis on right side Surgeon(s)/Proceduralists: myranda handley Anesthesia: Local with 1% lidocaine 5cc Estimated Blood Loss: None Findings: Large rt effusion, dark yellow fluid Specimen(s)/Culture(s) Description: None Complications: None
--- NOTE | 2019-04-22 21:46 | PRO ---
THORACENTESIS REPORT: DATE OF PROCEDURE: 04/22/19 - [facility] PROCEDURE PERFORMED: Ultrasound-guided thoracentesis on the right side. PREPROCEDURAL DIAGNOSIS: Large right pleural effusion. ANESTHESIA: Local anesthesia with 1% lidocaine 5 cc. DESCRIPTION OF PROCEDURE: Informed consent was obtained from the patient prior to the procedure after all the risks and benefits were thoroughly explained. Appropriate time-out was performed and agreed on by attending staff prior to the procedure. The patient was sitting up and leaning forward during the procedure. A CareFusion 8-[place] thoracentesis catheter was utilized for the procedure. Strict aseptic precautions and barrier techniques were followed. Area was disinfected with chlorhexidine. Sterile drape was placed. Local anesthesia was achieved with lidocaine 1% down into the pleural space taking precautions. A #11 scalpel blade was used to make a stab incision. CareFusion thoracentesis catheter was subsequently inserted under manual suction taking precautions. Catheter was left in place and needle was removed. 1300 mL of dark yellow fluid was aspirated on manual suction. Catheter was then removed and sterile Band-Aid was applied. The patient tolerated the procedure well. [id number]/CPS #: [id number] [facility]
== END | disposition home or self-care (01) ==
LOC: OR 11:27
PROVIDERS: ATTEND Internal Medicine
DX: J90 Pleural effusion, not elsewhere classified (principal); C50.919 Malignant neoplasm of unspecified site of unspecified female breast; C77.9 Secondary and unspecified malignant neoplasm of lymph node, unspecified; C79.51 Secondary malignant neoplasm of bone; Z95.2 Presence of prosthetic heart valve
CPT/HCPCS: 32554; 76604

== ENCOUNTER → 2019-05-13 11:08 | Day surgery (SDC) | payer MEDICARE, BC ==
--- NOTE | 2019-05-13 13:37 | BRIEFOPN ---
Brief Operative/Procedure Note - Operation Details Pre-Op Diagnosis: Large rt effusion Post-Op Diagnosis: Large rt effusion Procedures: U/S guided thoracentesi son rt side Surgeon(s)/Proceduralists: Ronaldo Anesthesia: Local with 1% lidocaine 6cc Estimated Blood Loss: None Findings: Large amounts of dark yellow fluid Specimen(s)/Culture(s) Description: None Complications: None
--- NOTE | 2019-05-13 21:17 | PRO ---
THORACENTESIS REPORT: DATE OF PROCEDURE: 05/13/19 PREPROCEDURAL DIAGNOSIS: Moderate to large right pleural effusion. ANESTHESIA: Local anesthesia with 1% lidocaine. DESCRIPTION OF PROCEDURE: Informed consent was obtained from the patient prior to the procedure after all the risks and benefits were thoroughly explained. The patient with metastatic breast cancer with recurrent pleural effusion. Appropriate time-out was performed and agreed on by attending staff prior to the procedure. The patient was sitting up and leaning forward during the procedure. Strict aseptic precautions and barrier techniques were utilized. Area was disinfected after ultrasound localization. Ultrasound localization was used to confirm the fluid and also mona the site for access. Sterile drape was applied. 1% lidocaine was instilled intradermally subcutaneously down into the pleural space taking precautions. A #11 scalpel blade was used to make a stab incision. CareFusion 8- [place] thoracentesis catheter was subsequently inserted under manual suction taking precautions. Catheter was left in place and needle was removed. 1200 mL of dark yellow fluid was removed on manual suction. The patient tolerated the procedure well. Sterile Band-Aid was apply to the area postprocedure. The patient had improvement in O2 sats and had no complaints post thoracentesis. [id number] #: [id number] [facility]
== END | disposition home or self-care (01) ==
LOC: OR 11:08
PROVIDERS: ATTEND Internal Medicine
DX: J90 Pleural effusion, not elsewhere classified (principal); C50.919 Malignant neoplasm of unspecified site of unspecified female breast; C79.51 Secondary malignant neoplasm of bone; G89.29 Other chronic pain; Z95.2 Presence of prosthetic heart valve
CPT/HCPCS: 32554; 76604

== ENCOUNTER → 2019-07-14 10:52 | Day surgery (SDC) | payer MEDICARE, BC ==
[2019-07-14 11:32] VITALS: BP 144/94
== END | disposition home or self-care (01) ==
LOC: OR 10:52
PROVIDERS: ATTEND Internal Medicine
DX: J91.0 Malignant pleural effusion (principal); J98.11 Atelectasis; R06.02 Shortness of breath
CPT/HCPCS: 76604

== ENCOUNTER 2020-01-23 08:02 | Inpatient (IN) ==
[~2020-01-23 08:02] MED LIST changes: -Buffered Lidocaine 0.9% SYRIN* 5 ML/SYR SYRINGE INTRADERM ONE; +Dexamethasone IV 8 MG in Premix IV 0 ML IV SCH; +METHOTREXATE IVPB SCH; +NS 0.9% IVPB SCH
[2020-01-23 08:39] LABS: Urine Appearance Clear; Urine Bacteria Absent (Absent); Urine Bilirubin Negative (Negative); Urine Blood Negative (Negative); Urine Color Straw; Urine Glucose Negative (Negative); Urine Ketones Negative (Negative); Urine Nitrite Negative (Negative); Urine Protein Negative (Negative); Urine Red Blood Cell Trace(0-2/hpf) (Absent); Urine Specific Gravity 1.011 (1.010-1.030); Urine Urobilinogen Negative (Negative); Urine White Blood Cell Trace(0-5/hpf) (Absent)
[2020-01-23] MEDS ORDERED: PALONOSETRON HCL 0.05 MG/ML (0.25 MG) SYRINGE (0.05 MG/ML) ONE (09:30)
[2020-01-23] MEDS ORDERED: METHOTREXATE IVPB SCH (09:36)
[2020-01-23] MEDS ORDERED: NS 0.9% IVPB SCH (09:36)
[2020-01-23 09:43] LABS: ABS Lymphocytes 0.2 10^3/ul (1.0-4.8); ABS Monocytes 0.2 10^3/ul (0-0.8); ABS Neutrophils 1.3 10^3/ul (1.5-7.7); Eosinophil % 0.4 %; Hematocrit 27 % (35-47); Hemoglobin 9.1 g/dL (12.0-16.0); Lymphocyte % 13.2 %; Mean Corpuscular HGB Conc 34 g/dL (31-36); Mean Corpuscular Hemoglobin 35 pg (27-31); Mean Corpuscular Volume 103 fL (80-97); Mean Platelet Volume 8.7 fL (7.4-10.4); Nucleated Red Blood Cells % 0.5; Platelet Count 144 10^3/uL (150-450); Red Blood Count 2.65 10^6 /uL (3.70-4.87); Red Cell Distribution Width 18 % (10-15); White Blood Count 1.8 10^3/uL (3.5-10.8)
[2020-01-23 09:53] LABS: Albumin 4.2 g/dL (3.2-5.2); Albumin/Globulin Ratio 1.6 (1-3); BUN/Creatinine Ratio 18.1 (8-20); Calcium 9.4 mg/dL (8.6-10.3); EGFR Non-African American 68.6 (>60); Globulin 2.7 g/dL (2-4); Potassium 3.8 mmol/L (3.5-5.0); Total Bilirubin 0.3 mg/dL (0.2-1.0); Total Protein 6.9 g/dL (6.4-8.9)
[2020-01-23] MEDS ORDERED: Sodium Bicarb 8.4% Vial 50 ML 150 MEQ in D5W 1000 ml BAG 850 ML IV ONE (10:00)
[2020-01-23] MEDS ORDERED: NS 0.9% IVPB ONE (12:30)
[2020-01-23] MEDS ORDERED: METHOTREXATE IVPB ONE (12:30)
[2020-01-23] MEDS: Enoxaparin 40 MG/0.4 ML SYR SUBCUT SCH (16:17)
[2020-01-23] MEDS: Sodium Bicarb 8.4% Vial 50 ML 150 MEQ in D5W 1000 ml BAG 850 ML IV SCH ×2 (18:05→22:35)
[2020-01-23] MEDS: Ondansetron 4 mg VIAL 2 MG/ML 2 ml VIAL IV PRN (19:43)
[2020-01-24] MEDS: Sodium Bicarb 8.4% Vial 50 ML 150 MEQ in D5W 1000 ml BAG 850 ML IV SCH ×6 (00:53→22:59)
[2020-01-24 06:36] LABS: ABS Lymphocytes 0.3 10^3/ul (1.0-4.8); ABS Monocytes 0.2 10^3/ul (0-0.8); ABS Neutrophils 2.2 10^3/ul (1.5-7.7); Hematocrit 23 % (35-47); Hemoglobin 7.9 g/dL (12.0-16.0); Lymphocyte % 10.6 %; Mean Corpuscular HGB Conc 35 g/dL (31-36); Mean Corpuscular Hemoglobin 35 pg (27-31); Mean Corpuscular Volume 101 fL (80-97); Mean Platelet Volume 8.5 fL (7.4-10.4); Platelet Count 108 10^3/uL (150-450); Red Blood Count 2.26 10^6 /uL (3.70-4.87); Red Cell Distribution Width 18 % (10-15); White Blood Count 2.7 10^3/uL (3.5-10.8)
[2020-01-24 06:59] LABS: Albumin 3.4 g/dL (3.2-5.2); Albumin/Globulin Ratio 1.5 (1-3); BUN/Creatinine Ratio 22.7 (8-20); Calcium 8.1 mg/dL (8.6-10.3); EGFR African American 69.3 (>60); EGFR Non-African American 57.3 (>60); Globulin 2.2 g/dL (2-4); Potassium 3.3 mmol/L (3.5-5.0); Total Bilirubin 0.5 mg/dL (0.2-1.0); Total Protein 5.6 g/dL (6.4-8.9)
[2020-01-24] MEDS ORDERED: Senna TAB 8.6 mg TAB PO PRN (09:03)
[2020-01-24] MEDS ORDERED: KCL 20 MEQ/100 ML IVPREMIX 20 MEQ/100 ML BAG IV ONE (10:10)
[2020-01-24] MEDS: Enoxaparin 40 MG/0.4 ML SYR SUBCUT SCH (12:20)
[2020-01-24] MEDS: Leucovorin Calcium 25 MG in NS 0.9% 50 ML 50 ML IVPB SCH ×2 (14:57→20:24)
[2020-01-24] MEDS: Metoclopramide 5 MG/ML VIAL (10 mg) IV PRN (18:15)
[2020-01-25] MEDS: Leucovorin Calcium 25 MG in NS 0.9% 50 ML 50 ML IVPB SCH ×4 (01:00→20:35)
[2020-01-25 06:46] LABS: ABS Lymphocytes 0.2 10^3/ul (1.0-4.8); ABS Monocytes 0.1 10^3/ul (0-0.8); ABS Neutrophils 1.7 10^3/ul (1.5-7.7); Eosinophil % 0.2 %; Hematocrit 22 % (35-47); Hemoglobin 7.8 g/dL (12.0-16.0); Lymphocyte % 10.2 %; Mean Corpuscular HGB Conc 36 g/dL (31-36); Mean Corpuscular Hemoglobin 36 pg (27-31); Mean Corpuscular Volume 101 fL (80-97); Platelet Count 100 10^3/uL (150-450); Red Blood Count 2.15 10^6 /uL (3.70-4.87); Red Cell Distribution Width 18 % (10-15); White Blood Count 1.9 10^3/uL (3.5-10.8)
[2020-01-25 07:09] LABS: Albumin 3.1 g/dL (3.2-5.2); Albumin/Globulin Ratio 1.4 (1-3); BUN/Creatinine Ratio 12.5 (8-20); EGFR Non-African American 52.9 (>60); Globulin 2.2 g/dL (2-4); Potassium 2.8 mmol/L (3.5-5.0); Total Bilirubin 0.2 mg/dL (0.2-1.0); Total Protein 5.3 g/dL (6.4-8.9)
[2020-01-25] MEDS: Ondansetron 4 mg VIAL 2 MG/ML 2 ml VIAL IV PRN ×4 (08:00→23:57)
[2020-01-25] MEDS ORDERED: Lorazepam PYXIS KEY PRN (10:49)
[2020-01-25] MEDS ORDERED: LORazepam 2 mg VIAL 1 ml IV PUSH ONE (10:50)
[2020-01-25] MEDS ORDERED: Dexamethasone IV 4 MG/ML VIAL 1 ml VIAL IV SLOW PU ONE (10:51)
[2020-01-25] MEDS ORDERED: Glycerin ADULT 2.4 gm SUPP PR PRN (10:59)
[2020-01-25] MEDS ORDERED: Sodium Bicarb 8.4% Vial 50 ML 150 MEQ in D5W 1000 ml BAG 850 ML IV SCH (11:00)
[2020-01-25] MEDS: KCL 20 MEQ/100 ML IVPREMIX 20 MEQ/100 ML BAG IV SCH ×2 (11:12→14:19)
[2020-01-25] MEDS: Enoxaparin 40 MG/0.4 ML SYR SUBCUT SCH (15:02)
[2020-01-25 16:17] LABS: Albumin 3.8 g/dL (3.2-5.2); Albumin/Globulin Ratio 1.6 (1-3); BUN/Creatinine Ratio 13.3 (8-20); Calcium 8.2 mg/dL (8.6-10.3); EGFR African American 50.3 (>60); EGFR Non-African American 41.6 (>60); Globulin 2.4 g/dL (2-4); Potassium 3.6 mmol/L (3.5-5.0); Total Bilirubin 0.3 mg/dL (0.2-1.0); Total Protein 6.2 g/dL (6.4-8.9)
[2020-01-25] MEDS: Sodium Bicarb 8.4% Vial 50 ML 150 MEQ in D5W 1000 ml BAG 850 ML IV SCH (16:48)
[2020-01-25] MEDS: NS 0.9% 1000 ml BAG 1,000 ML IV SCH (17:29)
[2020-01-25] MEDS: LORazepam 2 mg VIAL 1 ml IV PUSH PRN (19:57)
[2020-01-26] MEDS: LORazepam 2 mg VIAL 1 ml IV PUSH PRN ×2 (00:08→06:26)
[2020-01-26] MEDS: Leucovorin Calcium 25 MG in NS 0.9% 50 ML 50 ML IVPB SCH ×2 (01:16→08:07)
[2020-01-26] MEDS: NS 0.9% 1000 ml BAG 1,000 ML IV SCH (02:41)
[2020-01-26] MEDS: Ondansetron 4 mg VIAL 2 MG/ML 2 ml VIAL IV PRN (06:26)
[2020-01-26 06:35] LABS: Albumin 3.4 g/dL (3.2-5.2); Albumin/Globulin Ratio 1.5 (1-3); BUN/Creatinine Ratio 14.1 (8-20); Calcium 7.9 mg/dL (8.6-10.3); EGFR African American 47.3 (>60); EGFR Non-African American 39.1 (>60); Globulin 2.3 g/dL (2-4); Potassium 3.4 mmol/L (3.5-5.0); Total Bilirubin 0.3 mg/dL (0.2-1.0); Total Protein 5.7 g/dL (6.4-8.9)
[2020-01-26 06:44] LABS: Hematocrit 22 % (35-47); Hemoglobin 7.4 g/dL (12.0-16.0); Mean Corpuscular HGB Conc 34 g/dL (31-36); Mean Corpuscular Hemoglobin 35 pg (27-31); Mean Corpuscular Volume 102 fL (80-97); Mean Platelet Volume 8.1 fL (7.4-10.4); Platelet Count 94 10^3/uL (150-450); Red Blood Count 2.11 10^6 /uL (3.70-4.87); Red Cell Distribution Width 18 % (10-15); White Blood Count 2.4 10^3/uL (3.5-10.8)
[2020-01-26 07:59] LABS: ABS Lymphocytes 0.2 10^3/ul (1.0-4.8); ABS Neutrophils 2.2 10^3/ul (1.5-7.7); Eosinophil % 0.1 %; Lymphocyte % 9.4 %
[2020-01-26] MEDS ORDERED: Dexamethasone IV 4 MG/ML VIAL 1 ml VIAL IV SLOW PU ONE (08:16)
[2020-01-26] MEDS ORDERED: NS 0.9% 1000 ml BAG 1,000 ML IV ONE (08:23)
[2020-01-26] MEDS: Metoclopramide 5 MG/ML VIAL (10 mg) IV PRN (09:51)
[2020-01-26 10:52] VITALS: BP 119/70
[2020-01-27] MEDS ORDERED: Scopolamine PATCH Remove NOTE PATCH OFF ONE (09:00)
== END 2020-01-26 11:50 | disposition home or self-care (01) | DRG 847 ==
LOC: CHOA 08:02 → MED 09:08
PROVIDERS: ADMIT Internal Medicine Hematology & Oncology; ATTEND Internal Medicine Hematology & Oncology

== ENCOUNTER 2020-03-18 15:20 | Observation (INO) ==
[2020-03-18] MEDS ORDERED: NS 0.9% 1000 ml BAG 1,000 ML IV ONE (15:51)
[2020-03-18] MEDS ORDERED: Metoclopramide 5 MG/ML VIAL (10 mg) IV ONE (15:51)
[2020-03-18] MEDS ORDERED: diPHENhydraMINE IV 50 MG/ML 1 ml VIAL (BENADRYL) IV ONE (15:53)
[2020-03-18 16:00] LABS: ABS Lymphocytes 0.1 10^3/ul (1.0-4.8); ABS Neutrophils 3.6 10^3/ul (1.5-7.7); Eosinophil % 0.5 %; Hematocrit 31 % (35-47); Hemoglobin 10.2 g/dL (12.0-16.0); Mean Corpuscular HGB Conc 33 g/dL (31-36); Mean Corpuscular Hemoglobin 34 pg (27-31); Mean Corpuscular Volume 101 fL (80-97); Mean Platelet Volume 6.9 fL (7.4-10.4); Nucleated Red Blood Cells % 0.2; Platelet Count 170 10^3/uL (150-450); Red Blood Count 3.04 10^6 /uL (3.70-4.87); Red Cell Distribution Width 18 % (10-15); White Blood Count 3.7 10^3/uL (3.5-10.8)
[2020-03-18 16:09] LABS: Activated Partial Thrombo Time 24.9 seconds (26.0-38.0); INR 1.06 (0.82-1.09)
[2020-03-18 16:17] LABS: Albumin 3.7 g/dL (3.2-5.2); Albumin/Globulin Ratio 1.7 (1-3); BUN/Creatinine Ratio 40.3 (8-20); C Reactive Protein 51.38 mg/L (<8.01); Calcium 8.5 mg/dL (8.6-10.3); EGFR African American 97.8 (>60); EGFR Non-African American 80.8 (>60); Globulin 2.2 g/dL (2-4); Potassium 3.8 mmol/L (3.5-5.0); Total Bilirubin 0.6 mg/dL (0.2-1.0); Total Protein 5.9 g/dL (6.4-8.9)
[2020-03-18] MEDS ORDERED: Dexamethasone IV 4 MG/ML 5 ML VIAL (20 MG) IVPB ONE (17:16)
[2020-03-18 17:47] LABS: Erythrocyte Sed Rate 27 mm/Hr (0-29)
[2020-03-18] MEDS ORDERED: Ondansetron 4 mg VIAL 2 MG/ML 2 ml VIAL IV PRN (18:13)
[2020-03-18] MEDS ORDERED: Prochlorperazine 5 mg/ml 2 ml VIAL (10 mg) IV PRN (18:13)
[2020-03-18] MEDS ORDERED: Dexamethasone IV 6 MG in NS 0.9% 50 ML 50 ML IVPB SCH (19:00)
[2020-03-18] MEDS ORDERED: Dexamethasone IV 20 MG in NS 0.9% 50 ML 50 ML IVPB ONE (19:00)
[2020-03-18] MEDS: NS 0.9% 1000 ml BAG 1,000 ML IV SCH (20:20)
[2020-03-18 22:47] LABS: Urine Appearance Clear; Urine Bilirubin Negative (Negative); Urine Blood 1+ (Negative); Urine Color Yellow; Urine Glucose Negative (Negative); Urine Ketones Negative (Negative); Urine Nitrite Negative (Negative); Urine Protein Negative (Negative); Urine Specific Gravity 1.013 (1.010-1.030); Urine Urobilinogen Negative (Negative)
[2020-03-18 22:55] LABS: Urine Bacteria Absent (Absent); Urine Red Blood Cell Trace(0-2/hpf) (Absent); Urine Squamous Epithelial Cell Present (Absent); Urine White Blood Cell Absent (Absent)
[2020-03-19] MEDS: Dexamethasone IV 4 MG/ML VIAL 1 ml VIAL IV SLOW PU SCH ×3 (00:09→15:11)
[2020-03-19] MEDS: NS 0.9% 1000 ml BAG 1,000 ML IV SCH (05:43)
[2020-03-19 07:57] LABS: Hematocrit 26 % (35-47); Hemoglobin 8.6 g/dL (12.0-16.0); Mean Corpuscular HGB Conc 34 g/dL (31-36); Mean Corpuscular Hemoglobin 34 pg (27-31); Mean Corpuscular Volume 101 fL (80-97); Mean Platelet Volume 7.5 fL (7.4-10.4); Platelet Count 131 10^3/uL (150-450); Red Blood Count 2.54 10^6 /uL (3.70-4.87); Red Cell Distribution Width 19 % (10-15); White Blood Count 2.6 10^3/uL (3.5-10.8)
[2020-03-19 08:01] VITALS: BP 112/68
[2020-03-19 08:18] LABS: Albumin 3.1 g/dL (3.2-5.2); Albumin/Globulin Ratio 1.5 (1-3); Calcium 7.5 mg/dL (8.6-10.3); EGFR African American 148.9 (>60); EGFR Non-African American 123.1 (>60); Globulin 2.1 g/dL (2-4); Total Bilirubin 0.4 mg/dL (0.2-1.0); Total Protein 5.2 g/dL (6.4-8.9)
[2020-03-19 08:32] LABS: ABS Lymphocytes 0.2 10^3/ul (1.0-4.8); ABS Neutrophils 2.4 10^3/ul (1.5-7.7); Lymphocyte % 7.8 %
[2020-03-19] MEDS ORDERED: Gadoteridol (CONTRAST) 279.3 MG/ML 10 ML IV ONE (11:59)
== END 2020-03-19 15:10 | disposition home or self-care (01) ==
LOC: ED 15:20 → MED 15:20
PROVIDERS: ADMIT Student in an Organized Health Care Education/Training Program; ATTEND Student in an Organized Health Care Education/Training Program